=== PATIENT | male | born 1960 | race Caucasian/White ===

== ENCOUNTER 2019-04-27 19:14 | Emergency (ER) | payer OTHER ==
[~2019-04-27] VITALS: Ht 175.3 cm; Wt 90.7 kg
[2019-04-27 19:24] VITALS: Ht 175.3 cm; Wt 90.7 kg
[2019-04-27 20:20] VITALS: BP 118/71
== END 2019-04-27 20:20 | disposition other institution (70) ==
LOC: ED 19:14
DX: Z02.89 Encounter for other administrative examinations (principal)